=== PATIENT | male | born 2000 | race Caucasian/White ===

== ENCOUNTER 2022-05-03 12:17 | Outpatient (CLI) | payer OTHER ==
[2022-05-03 13:24] LABS: #Eosinphils 0.1 10x3/uL (0.0-0.5); #Monocytes 0.6 10x3/uL (0.0-1.1); #Neutrophils 6.2 10x3/uL (1.5-8.4); %Basophils 0.2 % (0.0-2.0); %Eosinophils 1.1 % (0.0-6.0); %Lymphocytes 18.5 % (18.0-47.0); %Monocytes 7.1 % (0.0-10.0); %Neutrophils 72.9 % (40.0-75.0); Hemoglobin 13.7 g/dL (13.5-17.5); Mean Corpuscular HGB CONC 33.9 g/dL (32.0-36.0); Mean Corpuscular Hemoglobin 29.7 pg (27.0-33.0); Mean Corpuscular Volume 87.6 fl (81.2-95.1); Mean Platelet Volume 9.9 fl (7.4-10.4); Platelet Count 222 10x3/uL (150-450); RBC Distribution Width 12.5 % (11.5-14.5); Red Blood Cell (RBC) Count 4.61 10x6/uL (4.32-5.72); White Blood Cell (WBC) Count 8.6 10x3/uL (3.5-10.5)
== END 2022-05-03 12:18 | disposition home or self-care (01) ==
LOC: LABBT 12:17
PROVIDERS: ATTEND Orthopaedic Surgery
DX: Z01.812 Encounter for preprocedural laboratory examination (principal); M75.111 Incomplete rotator cuff tear or rupture of right shoulder, not specified as traumatic; Z20.822 Contact with and (suspected) exposure to COVID-19
CPT/HCPCS: 85025; 87811